=== PATIENT | female | born 1950 | race Caucasian/White ===

== ENCOUNTER → 2016-06-06 | Outpatient (CLI) | payer MEDICARE, BC ==
[~2016-06-06] MED LIST: ASPIRIN81 M1 PO; ASPIRIN81 M2 PO; ATENOLOL PO; BESYLATE PO; EVISTA60 M1 PO; EVISTA60 MG PO; FAMOTIDINE PO; FOSINOPRIL PO; MONOPRIL HCT 101 TAB PO; NORVASC PO; PHENERGAN PO; PRAVASTATIN PO; PRILOSEC20 M1 PO; PRILOSEC20 MG PO; TENORMIN25 MG PO
--- NOTE | ~2016-06-06 | MY11 ---
[facility] A Service of [facility] RADIOLOGY TEXT RESULTS PATIENT: SHYANNE CONTRERAS LOCATION: [facility] : 54 UNIT #: [id number] AGE: [address]: Leola Walsh MD SEX: F ORDER DR: [id number] [address] [address] [id number] O MR#: [id number] Acc #: [id number] NAME: SHYANNE CONTRERAS : 1950 SEX: F STUDY DATE/TIME: 06/06/2016 9:56 UNIT: [facility] ROOM: STUDY DESCRIPTION: MY Mammogram Screening Dig Yovanny Attending Physician: Leola Walsh M.D. Referring Physician: Leola Walsh M.D. Ordering Physician: Leola Walsh M.D. Primary Care Physician: Leola Walsh M.D. MEDICAL IMAGING REPORT This report is preliminary unless electronic signature is present. EXAM Bilateral digital screening mammogram with CAD, 06/06/2016. HISTORY 66-year-old asymptomatic female with no personal or family history of breast cancer. FINDINGS The background breast parenchyma consists of scattered fibroglandular densities. No suspicious mass, microcalcification, architectural distortion. The exam is compared to prior mammogram dating 08/07/2014. IMPRESSION Negative mammogram. BIRADS 1. Recommendations: Annual screening mammogram. Patients over the age of 40 are entered into a reminder system with target due date for the next mammogram. A result letter will also be sent to the patient. BIRADS: 1 - negative Dictated by... Mikel Pineda M.D. THIS IS AN ELECTRONICALLY VERIFIED REPORT Mikel Pineda M.D. at 06/06/2016 5:[address] [facility]/m [facility] A Service [facility] RADIOLOGY TEXT RESULTS PATIENT: SHYANNE CONTRERAS LOCATION: [facility] : 54 UNIT #: [id number] AGE: [address]: Leola Walsh MD SEX: F ORDER DR: TD: 06/06/2016 14:44 JOB #: [id number] MEDICAL IMAGING REPORT Page 1 of 1
== END | disposition home or self-care (01) ==
LOC: SMAM 09:09
DX: Z12.31 Encounter for screening mammogram for malignant neoplasm of breast (principal)
CPT/HCPCS: G0202